=== PATIENT | male | born 1990 | race Caucasian/White ===

== ENCOUNTER 2017-12-24 21:31 | Emergency (ER) | payer MEDICAID ==
[2017-12-24] MEDS ORDERED: NS 1,000 ML IV ONE ×2 (21:42→21:44)
[2017-12-24] MEDS ORDERED: LORazepam 2 MG/ML INJ IVP ONE (21:44)
--- NOTE | 2017-12-24 21:48 | EDPHY ---
H & P Stated Complaint: POSSIBLY TOOK 25I NBOME @ 193 THEN XANAX 2129 Time Seen by Provider: 12/24/17 21:40 HPI/ROS: CHIEF COMPLAINT: "I think I took 25-I" HISTORY OF PRESENT ILLNESS: 27-year-old male history of chronic hallucinogenic use arrives by ambulance bleeding that he brought "regular acid" but believes he took instead "25-I". He did not like the way was making him feel and subsequently took a Xanax tablet that he keeps as a rescue medication. He is currently feeling more calm does note that earlier he has significant more agitated. He denies suicidal or homicidal ideations or attempt. Denies alcohol use. PRIMARY CARE PROVIDER: REVIEW OF SYSTEMS: 10 systems reviewed and negative with the exception of the elements mentioned in the history of present illness PAST MEDICAL & SURGICAL HISTORY: No pertinent medical or surgical history SOCIAL HISTORY: Positive for polysubstance abuse FAMILY HISTORY: No pertinent family history PHYSICAL EXAM (Prior to examination, patient consented to physical exam, hands were washed and my usual and customary physical exam procedures followed) 1) GENERAL: Well-developed, well-nourished, alert and oriented. Appears anxious 2) HEAD: Normocephalic, atraumatic 3) HEENT: Pupils equal, round, reactive to light bilaterally. Sclera anicteric. Nasopharynx, oropharynx, clear, no lesions. Dry mucous membranes. 4) NECK: Full range of motion, no meningeal signs. 5) LUNGS: Clear auscultation bilaterally, no wheezes, no rhonchi, no retractions. 6) HEART: Regular rate and rhythm, no murmur, no heave, no gallop. 7) ABDOMEN: No guarding, no rebound, no focal tenderness, negative McBurney's, negative Beltran's, negative Rovsing's, negative peritoneal sign, 8) MUSCULOSKELETAL: Moving all extremities, no focal areas of tenderness, no obvious trauma. No peripheral edema or discoloration. 9) BACK: No CVA tenderness, no midline vertebral tenderness, no fluctuance, no step-off, no obvious trauma, no visual or palpable abnormality. 10) SKIN: No rash, no petechiae. 11) Psychiatric: Patient is oriented X 3, there is no agitation. DIFFERENTIAL DIAGNOSIS: In no particular order including but not limited to rhabdomyolysis, acute kidney injury secondary to illicit drug use, illicit drug use - Personal History Current Tetanus/Diphtheria Vaccine: Yes Current Tetanus Diphtheria and Acellular Pertussis (TDAP): Yes - Medical/Surgical History Hx Asthma: No Hx Chronic Respiratory Disease: No Hx Diabetes: No Hx Cardiac Disease: No Hx Renal Disease: No Hx Cirrhosis: No Hx Alcoholism: No Hx HIV/AIDS: No Hx Splenectomy or Spleen Trauma: No Other PMH: DENIES - Social History Smoking Status: Current every day smoker Constitutional: Initial Vital Signs Temperature (C) 37.2 C 12/24/17 21:37 Heart Rate 124 H 12/24/17 21:37 Respiratory Rate 18 12/24/17 21:37 Blood Pressure 149/78 H 12/24/17 21:37 O2 Sat (%) 93 12/24/17 21:37 O2 Delivery Mode Room Air O2 (L/minute) 2 Allergies/Adverse Reactions: No Known Allergies Allergy (Unverified 12/24/17 21:41) Home Medications: Medication Instructions Recorded NK [No Known Home Meds] 12/24/17 Medical Decision Making ED Course/Re-evaluation: 9:47 p.m.: Patient will be observed in the ER for period of time, will be given IV hydration, IV benzodiazepine, will check laboratory studies including CK, creatinine and and monitor patient. I saw this patient independently based on established practice protocols. Care of patient under supervision of secondary supervising physician Dr Lezama with whom I discussed case. 10:30 p.m.: Re-evaluation no evidence of acute kidney injury no evidence of rhabdomyolysis. He is resting comfortably appears comfortable. 10:59 p.m.: Patient walking on emergency department answering questions appropriately comp cooperative alert oriented person place time events, clear speech pattern. He has no clinical evidence of intoxication. I believe him to have decision-making capacity at this time. He would like to leave. I recommended he stay in the ER for further period of observation however states that he has place to go and would like to leave. He is therefore discharged from the emergency department. Discharged with my usual and customary discharge precautions and instructions. Denies suicidal or homicidal ideation Recommend avoidance of illicit drugs in the future. - Data Points Laboratory Results: Laboratory Results 12/24/17 21:40 12/24/17 21:40 12/24/17 12/24/17 21:40 21:40 WBC 11.17 10^3/uL H 10^3/uL (3.80-9.50) RBC 5.61 10^6/uL 10^6/uL (4.40-6.38) Hgb 17.1 g/dL g/dL (13.7-17.5) Hct 51.0 % % (40.0-51.0) MCV 90.9 fL fL (81.5-99.8) MCH 30.5 pg pg (27.9-34.1) MCHC 33.5 g/dL g/dL (32.4-36.7) RDW 12.8 % % (11.5-15.2) Plt Count 329 10^3/uL 10^3/uL (150-400) MPV 10.3 fL fL (8.7-11.7) Neut % (Auto) 54.1 % % (39.3-74.2) Lymph % (Auto) 36.2 % % (15.0-45.0) Barry % (Auto) 7.4 % % (4.5-13.0) Eos % (Auto) 1.2 % % (0.6-7.6) Baso % (Auto) 0.6 % % (0.3-1.7) Nucleat RBC Rel Count 0.0 % % (0.0-0.2) Absolute Neuts (auto) 6.04 10^3/uL 10^3/uL (1.70-6.50) Absolute Lymphs (auto) 4.04 10^3/uL H 10^3/uL (1.00-3.00) Absolute Monos (auto) 0.83 10^3/uL H 10^3/uL (0.30-0.80) Absolute Eos (auto) 0.13 10^3/uL 10^3/uL (0.03-0.40) Absolute Basos (auto) 0.07 10^3/uL 10^3/uL (0.02-0.10) Absolute Nucleated RBC 0.00 10^3/uL 10^3/uL (0-0.01) Immature Gran % 0.5 % % (0.0-1.1) Immature Gran # 0.06 10^3/uL 10^3/uL (0.00-0.10) Sodium 138 mEq/L mEq/L (135-145) Potassium 3.6 mEq/L mEq/L (3.3-5.0) Chloride 99 mEq/L mEq/L (97-110) Carbon Dioxide 12 mEq/l L mEq/l (22-31) Anion Gap 27 mEq/L H mEq/L (8-16) BUN 11 mg/dL mg/dL (7-23) Creatinine 1.1 mg/dL mg/dL (0.7-1.3) Estimated GFR > 60 Glucose 165 mg/dL H mg/dL (70-100) Calcium 9.7 mg/dL mg/dL (8.5-10.4) Creatine Kinase 124 IU/L IU/L (0-224) Medications Given: Discontinued Medications Sodium Chloride (Ns) 1,000 mls @ 0 mls/hr IV EDNOW ONE; Wide Open PRN Reason: Protocol Stop: 12/24/17 21:43 Last Admin: 12/24/17 21:43 Dose: 1,000 mls Sodium Chloride (Ns) 1,000 mls @ 0 mls/hr IV ONCE ONE PRN Reason: Wide Open Stop: 12/24/17 21:45 Last Admin: 12/24/17 22:26 Dose: 1,000 mls Departure - Departure Disposition: Home, Routine, Self-Care Clinical Impression: Hallucinogen abuse Condition: Good Instructions: Polysubstance Abuse (ED) Additional Instructions: Do not use drugs in the future Referrals: MICHELE Ureña,. [Clinic] - 1-2 days without fail
[2017-12-24 21:51] LABS: PLATELET COUNT 329 10^3/uL (150-400)
[2017-12-24 22:06] LABS: CREATINE KINASE 124 IU/L (0-224)
[2017-12-24 23:09] VITALS: BP 114/61
--- NOTE | 2017-12-26 14:57 | CPEKG ---
Test Reason : OPEN Blood Pressure : / mmHG Vent. Rate : 124 BPM Atrial Rate : 124 BPM P-R Int : 146 ms QRS Dur : 099 ms QT Int : 333 ms P-R-T Axes : 064 024 033 degrees QTc Int : 479 ms Sinus tachycardia Borderline prolonged QT interval Confirmed by Camille Marion ([id number]) on 12/26/2017 2:56:17 PM Referred By: Confirmed By:Camille Marion
== END 2017-12-24 23:08 | disposition home or self-care (01) ==
DX: F16.10 Hallucinogen abuse, uncomplicated (principal); E86.9 Volume depletion, unspecified; F17.200 Nicotine dependence, unspecified, uncomplicated